=== PATIENT | female | born 1940 | race Caucasian/White ===

== ENCOUNTER 2021-05-08 06:24 | Observation (INO) | payer BC ==
[~2021-05-08] VITALS: Ht 162.6 cm; Wt 96.6 kg
--- NOTE | ~2021-05-08 | P ---
[facility] [address] [place] [address] PROCEDURE REPORT Name: SUNDEEP ESCOBAR Room #: 211-P [facility] Nahomi Whitehead#: [id number] Admission: 05/08/21 Attend Phys: Arash Aldana MD Discharge: 05/09/21 Date of : 40 Report #: [id number] THIS REPORT FOR: cc: Taras Fuller MD, Prashanth S. MD Couchonnal, Luis F. MD ~ DATE OF SERVICE: 05/08/2021 ATRIAL FIBRILLATION ABLATION PREOPERATIVE DIAGNOSES: Atrial fibrillation and atrial flutter. POSTOPERATIVE DIAGNOSES: Atrial fibrillation and atrial flutter. PROCEDURES PERFORMED: 1. Atrial fibrillation ablation, CPT code 93443. 2. 3D mapping, CPT code 18028. 3. Intracardiac echo, CPT code 63839. 4. Focal ablation. DESCRIPTION OF PROCEDURE: The patient was brought to the EP laboratory in a fasting and sedated state, prepped and draped in a standard fashion. At baseline, she was noted to be in AFib. I obtained access to the right femoral vein x 3, placing an 8, 9 and 7-Luxembourgish short sheath and under fluoroscopy, I placed a decapolar catheter into the coronary sinus and an ICE catheter in the right atrium. At baseline, the patient was in atrial fibrillation. The patient was systemically heparinized and a transseptal was performed using an SL1 sheath and a Gifford needle, which was straightforward. I then exchanged for the cryosheath and the Lasso catheter was placed in the left atrium. A detailed 3D geometry of the left atrium was then created. I then exchanged for the Cryoballoon and we started by isolating the pulmonary veins. The left inferior pulmonary vein underwent a 3-minute freeze followed by a 4-minute freeze, which resulted in isolation at 74 seconds. The vein then reconnected and underwent an additional 4-minute freeze isolating the vein at 81 seconds. The right superior pulmonary vein underwent a 4-minute freeze and isolated at 35 seconds. The right inferior pulmonary vein underwent a 4-minute freeze and isolated at 50 seconds. The right superior pulmonary vein underwent multiple freezes, which did not result in isolation. I therefore decided to move on to the posterior wall isolation. Posterior wall isolation: The patient underwent a total of 5 freezes, each of 3 minutes duration along the posterior wall. Esophageal temperatures were monitored and were within normal limits. I then performed a cardioversion and there was evidence of isolation of all pulmonary veins except the left superior pulmonary vein. I attempted a few additional freezes along the posterior lien, but this did not result in isolation. Therefore, I removed the [address] [address] PROCEDURE REPORT Name: SUNDEEP ESCOBAR Room #: 211-P [facility] Nahomi Whitehead#: [id number] Admission: 05/08/21 Attend Phys: Arash Aldana MD Discharge: 05/09/21 Date of : 40 Report #: [id number] Cryoballoon and placed a SmartTouch ThermoCool ablation catheter into the left atrium and there was an area of activity along the posterior lien near the left superior pulmonary vein. A single ablation lesion at this site resulted in isolation of this vein. Atrial flutter ablation: Now that we had finished on the left atrium, we decided to go to the right atrium and perform atrial flutter ablation. Using a SmartTouch ThermoCool ablation catheter via a ramp sheath, ablation was performed at 6 o'clock along the cavotricuspid isthmus. Preablation, the transisthmus conduction time was 80 milliseconds. I had a difficult time achieving bidirectional block as there was a slight ridge along the posterior aspect of the isthmus. Therefore, I removed the ramp sheath and went up with the ablation catheter and performed a reverse prolapse technique to get this area where I could not get contact before. Ablation along the posterior aspect resulted in bidirectional block. Post-ablation, the transisthmus conduction time was 180 milliseconds. As such, the procedure was concluded. There was no evidence of pericardial effusion. The patient received systemic protamine and once ACT was within acceptable range, all catheters and sheaths were pulled. Hemostasis obtained. CONCLUSION: 1. Successful AFib ablation and isolation of the pulmonary veins. 2. Successful posterior wall isolation. 3. Successful atrial flutter ablation with bidirectional block. By: [id number] Arash Aldana MD /nt
[2021-05-08 07:33] VITALS: BP 131/78
[2021-05-08] MEDS ORDERED: ELIQUIS2.5 MG PO (07:38)
[2021-05-08] MEDS ORDERED: LIPITOR 20 MG T20 M1 PO (07:39)
[2021-05-08] MEDS ORDERED: DILTIAZEM ER180 M2 PO (07:39)
[2021-05-08 07:40] LABS: ABSOLUTE NEUTROPHILS 5.1 thou/uL (1.4-8.2); BASOPHILS 0.8 % (0.0-2.0); EOSINOPHILS 1.7 % (0.0-3.0); HEMATOCRIT 41.5 % (37.0-47.0); HEMOGLOBIN 13.8 gm/dL (12.0-15.0); LYMPHOCYTES 17.4 % (24.0-44.0); MCHC 33.3 g/dL (28.0-37.0); MCV 90.3 fL (80.0-100.0); MONOCYTES 10.2 % (1.0-8.0); PLATELET COUNT 253 thou/uL (150-400); POLYS 69.9 % (36.0-66.0); RDW 13.7 % (10.5-14.5); WBC 7.2 thou/uL (4.0-11.0)
[2021-05-08] MEDS ORDERED: FUROSEMIDE 40 M40 MG PO (07:40)
[2021-05-08] MEDS ORDERED: KLOR-CON M2020 MEQ PO (07:40)
[2021-05-08 08:01] LABS: CALCIUM 9.6 mg/dL (8.5-10.1); CREATININE 1.1 mg/dL (0.6-1.0); POTASSIUM 4.3 mmol/L (3.5-5.1)
[2021-05-08 08:06] LABS: ALBUMIN 3.7 g/dL (3.4-5.0); TOTAL BILIRUBIN 0.7 mg/dL (0.2-1.0); TOTAL PROTEIN 7.1 g/dL (6.4-8.2)
[2021-05-08 08:31] LABS: INR 1.01
[2021-05-08] MEDS ORDERED: ELIQUIS5 MG PO (13:19)
[2021-05-08] MEDS ORDERED: PACERONE 200 M200 M1 PO (13:19)
--- NOTE | 2021-05-08 16:10 | NUR ---
TOOK OVER CARE OF PATIENT AT 1500. PT TRANSFERRED FROM CARDIAC FIELD INSTALLER. PT TO REMAIN ON BEDREST TILL 1600. VSS. PT DENIES PAIN OR SOA. PT HAS DRY, NONPRODUCTIVE COUGH. RIGHT GROIN SITE CDI, NO HEMATOMA NOTED. FALL PRECAUTIONS IN PLACE AND CALL LIGHT WITHIN REACH.
[2021-05-08 17:00] VITALS: BP 136/68
--- NOTE | 2021-05-08 18:09 | NUR ---
THIS NURSE ASSESSED PATIENT'S RIGHT GROIN SITE AT 1600 WHEN HER BEDREST WOULD BE COMPLETE; PATIENT'S RIGHT GROIN SITE NOW HAS SOME OOZING NOTED ON THE GAUZE. PATIENT TO REMAIN ON BEDREST AT THIS TIME; WILL CONTINUE TO MONITOR AND REASSESS. FALL PRECAUTIONS IN PLACE. CALL LIGHT WITHIN REACH.
[2021-05-08 19:07] VITALS: BP 128/66
[2021-05-09] VITALS: BP 120/58
[2021-05-09 03:11] VITALS: BP 122/67
--- NOTE | 2021-05-09 03:37 | NUR ---
PT IS ALERT AND ORIENTED X4. LUNGS ARE CLEAR ON ROOM AIR. ABDOMEN IS ROUND AND SOFT BOWEL SOUNDS ACTIVE. JELLO GIVEN LAST NIGHT WAS HUNGRY FOR A SNACK REPORTED SHE HADNT ATE. RIGHT GROIN SITE SMALL AMOUNT OF BLOOD NOTED. NO HEMATOMA NOTED. DENIES ANY PAIN. UP TO BATHROOM VOIDED STEADY GAIT WITH AMBULATAING. CALL LIGHT WITHIN REACH IF NEEDS ASSISTANCE PER NURSING.
[2021-05-09 07:20] VITALS: BP 148/73
[2021-05-09 07:53] VITALS: BP 148/73
[2021-05-09 08:02] VITALS: BP 148/75
== END 2021-05-09 13:37 | disposition home or self-care (01) ==
LOC: CATH 06:24 → 2N 15:19
PROVIDERS: ADMIT Internal Medicine Cardiovascular Disease; ATTEND Internal Medicine Cardiovascular Disease
DX: I48.91 Unspecified atrial fibrillation (principal); Z20.822 Contact with and (suspected) exposure to COVID-19; I48.92 Unspecified atrial flutter; I11.0 Hypertensive heart disease with heart failure; I50.30 Unspecified diastolic (congestive) heart failure; G47.33 Obstructive sleep apnea (adult) (pediatric); I34.0 Nonrheumatic mitral (valve) insufficiency; Z88.8 Allergy status to other drugs, medicaments and biological substances
CPT/HCPCS: 62110; 62900; 65020; 65040; 70005